=== PATIENT | male | born 2000 | race African-American/Black ===

== ENCOUNTER 2024-04-17 22:22 | Emergency (ER) | payer OTHER ==
[~2024-04-17] VITALS: Ht 167.6 cm; Wt 77.1 kg
[2024-04-17 22:52] VITALS: BP 152/89; TEMP 98.1; O2SAT 98
[2024-04-18] MEDS ORDERED: TDAP [DIPH/PERTUSSIS/TET] 0.5 ML VIAL IM ONE
== END 2024-04-17 23:52 | disposition home or self-care (01) ==
LOC: ER 22:28
DX: S61.012A Laceration without foreign body of left thumb without damage to nail, initial encounter (principal); Z88.0 Allergy status to penicillin; W26.0XXA Contact with knife, initial encounter; Y93.G3 Activity, cooking and baking; Y92.090 Kitchen in other non-institutional residence as the place of occurrence of the external cause; Y99.8 Other external cause status